=== PATIENT | male | born 1985 | race Caucasian/White ===

== ENCOUNTER 2021-07-12 20:25 | Emergency (ER) | payer OTHER ==
[~2021-07-12 20:25] MED LIST: ALBUTEROL0.09 MG/A2 IH; AMOXICILLIN500 MG PO; AMOXIL500 MG PO; CEPHALEXIN500 M1 PO; CLINDAMYCIN HC300 MG PO; CORDROL20 MG PO; DARVOCET N 1001 TAB PO; EC NAPROSYN500 MG PO; FLEXERIL10 MG PO; GABAPENTIN100 M2 PO; HYDROCODONE BIT1 T11 PO; MELOXICAM15 MG PO; MOTRIN800 MG PO; NAPROSYN500 MG PO; NKHM; NORCO 5-325 TA1 EACH PO; ROBAXIN500 MG PO; TESSALON PERLE100 M1 PO; TIZANIDINE HCL4 MG PO; TOBRADEX 0.1%-0.5 ML OPH; TRAMADOL HCL50 MG PO
== END 2021-07-12 22:43 | disposition home or self-care (01) ==
LOC: ED 20:25
DX: S96.912A Strain of unspecified muscle and tendon at ankle and foot level, left foot, initial encounter (principal); Z79.2 Long term (current) use of antibiotics; Z79.899 Other long term (current) drug therapy; Z98.890 Other specified postprocedural states; W01.0XXA Fall on same level from slipping, tripping and stumbling without subsequent striking against object, initial encounter; Y93.68 Activity, volleyball (beach) (court); Y92.39 Other specified sports and athletic area as the place of occurrence of the external cause; Y99.8 Other external cause status

== ENCOUNTER 2024-09-26 09:03 | Emergency (ER) | payer OTHER ==
[~2024-09-26] VITALS: Ht 172.7 cm; Wt 90.1 kg
[2024-09-26] MEDS ORDERED: FLUORESCEIN SODIUM 1 MG STRIP OPH ONE (09:15)
[2024-09-26] MEDS ORDERED: LEVOFLOXACIN OP (09:40)
[2024-09-26] MEDS ORDERED: CIPROFLOXACIN H10 ML OPH (11:40)
== END 2024-09-26 09:47 | disposition home or self-care (01) ==
LOC: ED 09:03
DX: S05.01XA Injury of conjunctiva and corneal abrasion without foreign body, right eye, initial encounter (principal); Z98.890 Other specified postprocedural states; W22.8XXA Striking against or struck by other objects, initial encounter; Y93.89 Activity, other specified; Y92.89 Other specified places as the place of occurrence of the external cause; Y99.8 Other external cause status

== ENCOUNTER 2025-10-07 06:59 | Emergency (ER) | payer SELFPAY ==
[~2025-10-07] VITALS: Ht 175.2 cm; Wt 90.7 kg
[~2025-10-07 06:59] MED LIST changes: +CIPROFLOXACIN H10 ML OPH; +LEVOFLOXACIN OP
[2025-10-07] MEDS ORDERED: SODIUM CHLORIDE 0.9% 500 ML IV ONE (07:25)
[2025-10-07] MEDS ORDERED: Ondansetron Hydrochloride 4 MG/2 ML VIAL IV ONE (07:25)
[2025-10-07 07:37] LABS: BASO # 0.1 10*3/uL (0.0-0.1); BASO % 0.5 % (0.0-1.0); EOS # 0.1 10*3/uL (0.0-0.4); EOS % 0.4 % (1.0-4.0); MEAN CELL VOLUME 87.9 fl (80.0-94.0); MEAN CORPUSCULAR HGB 30.0 pg (27.0-31.0); MEAN PLATELET VOLUME 9.3 fl (9.6-12.3); MONO # 0.5 10*3/uL (0.1-1.0); MONO % 3.3 % (3.0-9.0); NEUT # 12.0 10*3/uL (2.3-7.9); NEUT % 84.8 % (47.0-73.0); NUCLEATED RED BLOOD CELL 0.0 % (0.0-0.0); NUCLEATED RED BLOOD CELL 0.0 10*3/uL (0.0-0.0); PLATELET COUNT AUTOMATED 310 10*3/uL (130-400); RED CELL DISTRI WIDTH 12.5 % (0-14.5)
[2025-10-07] MEDS ORDERED: fentaNYL CITRATE/PF 50 MCG/ML SYRINGE ONE (07:58)
[2025-10-07] MEDS ORDERED: SODIUM CHLORIDE 0.9% 1,000 ML IV ONE (07:58)
[2025-10-07] MEDS ORDERED: Ondansetron Hydrochloride 4 MG/2 ML VIAL ONE (07:58)
[2025-10-07 07:59] LABS: BUN 11 mg/dl (9-23); SGPT/ALT 15 U/L (5-49)
== END 2025-10-07 09:40 | disposition home or self-care (01) ==
LOC: ED 06:59
PROVIDERS: Emergency Medicine
DX: K42.9 Umbilical hernia without obstruction or gangrene (principal); Z98.890 Other specified postprocedural states